=== PATIENT | male | born 1995 | race Caucasian/White ===

== ENCOUNTER 2016-12-13 20:18 | Emergency (ER) | payer OTHER ==
[~2016-12-13] VITALS: Ht 190.5 cm; Wt 132.4 kg
[2016-12-13 21:13] LABS: HEMATOCRIT 49.2 % (38.0-50.0); MCHC 32.3 G/DL (30.0-36.0); MCV 86.8 FL (86-99); MEAN PLAT.VOLUME 10.8 uM^3 (9.0-12.4); PLATELET COUNT 248 K/uL (156-360); RBC DIS.WIDTH-CV 13.3 % (11.8-14.6); RBC DIS.WIDTH-SD 42.2 % (39-53); RED BLOOD COUNT 5.67 M/uL (4.00-5.50); WHITE BLOOD COUNT 9.4 K/uL (4.1-10.2)
[2016-12-13 21:25] LABS: CHLORIDE 106 mEq/L (99-109); SODIUM 138 mEq/L (136-147)
[2016-12-13 21:27] LABS: GLUCOSE 109 mg/dL (70-99)
[2016-12-13 21:28] LABS: ANION GAP 10 MEQ/L (2-14)
[2016-12-13 21:29] LABS: TOTAL BILIRUBIN 1.2 mg/dL (0.0-1.0)
[2016-12-13 21:30] LABS: ALKALINE PHOSPHATASE 75 IU/L (3-129)
[2016-12-13 21:31] LABS: GFR ESTIMATE (CALCULATED) > 59 mL/min/
[2016-12-13 21:32] LABS: UREA NITROGEN (BUN) 13 mg/dL (9-23)
[2016-12-13 22:18] LABS: LIPASE 17 U/L (1.0-51.0)
[2016-12-13 23:03] LABS: INTERNAL CONTROL VALID? YES; MONOSPOT (MONONUCLEOSIS SEROL) NEGATIVE
[2016-12-13 23:29] LABS: ADD MIUA? YES; BILIRUBIN NEGATIVE; BLOOD NEGATIVE; COLOR YELLOW ((YELLOW)); GLUCOSE (STRIP) NEGATIVE; KETONES 5; LEUKOCYTES NEGATIVE; NITRITE NEGATIVE; PROTEIN (STRIP) 30; SPECIFIC GRAVITY 1.025 (1.000-1.030); UROBILINOGEN 0.2 MG/DL (0.2-1.0)
[2016-12-13 23:44] LABS: BACTERIA RARE /HPF; EPITHELIAL CELLS NONE SEEN /HPF; MUCUS 2+ /LPF; RED BLOOD CELLS 0-5 /HPF (0-5); UCUL ADDED? NO; WHITE BLOOD CELLS 0-5 /HPF (0-5)
[2016-12-14] MEDS ORDERED: ZOFRAN4 MG PO (01:05)
[2016-12-14 01:20] VITALS: BP 100/53
== END 2016-12-14 01:34 | disposition home or self-care (01) ==
LOC: EME 20:18
DX: R11.2 Nausea with vomiting, unspecified (principal); R19.7 Diarrhea, unspecified; K80.20 Calculus of gallbladder without cholecystitis without obstruction; R10.13 Epigastric pain
CPT/HCPCS: 74020; 76705; 80053; 81003; 83690; 85027; 86308; 87651 90; 99281; 99285; J1885; J2405; J7030

== ENCOUNTER 2017-01-04 05:33 | Day surgery (SDC) | payer OTHER ==
[~2017-01-04] VITALS: Ht 188 cm; Wt 132.0 kg
[~2017-01-04 05:33] MED LIST: ALLEGRA60 MG PO; ZOFRAN4 MG PO
[2017-01-04 06:10] VITALS: BP 132/69
[2017-01-04] MEDS ORDERED: PERCOCET 5/31 TABLET PO (09:50)
[2017-01-04] MEDS ORDERED: COLACE100 MG PO (09:50)
[2017-01-04 11:40] VITALS: BP 150/97
[2017-01-04 13:46] VITALS: BP 144/77
== END 2017-01-04 13:47 | disposition home or self-care (01) ==
LOC: SDC 05:33
PROC: 0FT44ZZ Resection of Gallbladder, Percutaneous Endoscopic Approach (ICD-10-PCS; principal; 2017-01-04)
DX: K80.10 Calculus of gallbladder with chronic cholecystitis without obstruction (principal); F90.1 Attention-deficit hyperactivity disorder, predominantly hyperactive type; K21.9 Gastro-esophageal reflux disease without esophagitis; J45.909 Unspecified asthma, uncomplicated; E66.9 Obesity, unspecified; R73.09 Other abnormal glucose; Z82.49 Family history of ischemic heart disease and other diseases of the circulatory system; Z83.3 Family history of diabetes mellitus; Z68.33 Body mass index [BMI] 33.0-33.9, adult
CPT/HCPCS: 88304; C1769; J0131; J0330; J0744; J1100; J1170; J2250; J2405; J2710